=== PATIENT | female | born 1960 | race Caucasian/White ===

== ENCOUNTER → 2017-02-18 | Outpatient (CLI) | payer BC ==
--- NOTE | 2017-02-18 09:11 | REPMRS ---
Patient History The patient states she had a clinical breast exam in 01/2017. Patient is postmenopausal and had first child at age 33. Family history of endometrial cancer in sister at age 50 and colorectal cancer in maternal aunt at age 50 or over. Digital Woman Screen Mammo: February 18, 2017 - Exam #: [id number] Bilateral CC and MLO view(s) were taken. Technologist: Gina Carvalho, Technologist Prior study comparison: January 30, 2016, digital woman screen mammo performed at [facility]. January 17, 2015, digital woman screen mammo performed at [facility]. FINDINGS: The breast tissue is heterogeneously dense. This may lower the sensitivity of mammography. There is a fairly symmetric fibroglandular pattern in both breasts. There has been no interval development of masses, areas of architectural distortion or clusters of microcalcifications typical of malignancy. ASSESSMENT: BI-RADS/ACR category 2 mammogram. Benign finding(s). Recommendation Routine screening mammogram of both breasts in 1 year (for women over age 40). This mammogram was interpreted with the aid of an FDA-approved computer-aided dectection system. Electronically Signed By: Kev Prince MD 02/18/17 0910
== END ==
LOC: M WHC 08:07
PROVIDERS: ATTEND Nurse Practitioner Family
DX: Z12.31 Encounter for screening mammogram for malignant neoplasm of breast (principal)

== ENCOUNTER → 2017-02-18 | Outpatient (REF) | payer BC | LOC: M SFHCWAGY 08:31 | PROVIDERS: ATTEND Nurse Practitioner Family | DX: Z12.4 Encounter for screening for malignant neoplasm of cervix (principal) ==

== ENCOUNTER → 2018-05-19 | Outpatient (CLI) | payer BC | LOC: M WHC 08:15 | DX: Z12.31 Encounter for screening mammogram for malignant neoplasm of breast (principal) ==

== ENCOUNTER → 2018-09-23 | Outpatient (CLI) | payer BC ==
--- NOTE | 2018-09-23 10:24 | REP ---
Clinical: Trauma/fall with pain. Technique: AP, lateral, bilateral oblique views right wrist. Findings: The carpal bones, surrounding osseous structures, soft tissues, and joint spaces are normal. There is no evidence for acute fracture or dislocation. No subcutaneous emphysema or radiodense foreign body. Impression: Normal right wrist series. No acute fracture or dislocation Electronically Signed by Grabiel Dorantes MD 09/23/2018 10:16 A
== END ==
LOC: M ADAMS 10:02
PROVIDERS: ATTEND Physician Assistant Medical
DX: M25.531 Pain in right wrist (principal)

== ENCOUNTER → 2019-01-19 | Outpatient (REF) | payer BC | LOC: M LAB REF 14:09 | PROVIDERS: ATTEND Physician Assistant Medical | DX: N39.0 Urinary tract infection, site not specified (principal) ==

== ENCOUNTER → 2019-06-01 | Outpatient (CLI) | payer BC ==
--- NOTE | 2019-06-01 11:32 | REPMRS ---
Patient History The patient states she had a clinical breast exam in 05/2019. Patient is postmenopausal and had first child at age 33. Family history of colorectal cancer at age 50 or over in maternal aunt, breast cancer at age 60 and endometrial cancer at age 50 in sister. 3D TOMOSYNTHESIS WAS PERFORMED. The [facility] lifetime risk for breast cancer is 18.3%. Digital Woman Screen Mammo: June 01, 2019 - Exam #: [id number] Bilateral CC and MLO view(s) were taken. Technologist: Gina Carvalho, Technologist Prior study comparison: May 19, 2018, bilateral digital woman screen mammo performed at [facility]. February 18, 2017, digital woman screen mammo performed at [facility]. FINDINGS: The breast tissue is heterogeneously dense. This may lower the sensitivity of mammography. There has been no change in the appearance of the mammogram from the prior studies. There is a moderate amount of residual fibroglandular tissue which is fairly symmetric. There is no interval development of dominant mass, areas of architectural distortion, or clustered microcalcification typical of malignancy. Assessment: BI-RADS/ACR category 1 mammogram. Negative Mammogram. Recommendation Routine screening mammogram in 1 year (for women over age 40). This mammogram was interpreted with the aid of an FDA-approved computer-aided dectection system. Electronically Signed By: Kev Prince MD 06/01/19 5796
== END ==
LOC: M WHC 08:38
PROVIDERS: ATTEND Nurse Practitioner Family
DX: Z12.31 Encounter for screening mammogram for malignant neoplasm of breast (principal); Z80.0 Family history of malignant neoplasm of digestive organs; Z85.3 Personal history of malignant neoplasm of breast; Z80.49 Family history of malignant neoplasm of other genital organs

== ENCOUNTER → 2019-06-01 | Outpatient (REF) | payer BC ==
[2019-06-06 08:19] LABS: HPV HYBRID CAPTURE II Negative (Negative)
== END ==
LOC: M SFHCWAGY 09:21
PROVIDERS: ATTEND Nurse Practitioner Family
DX: Z12.4 Encounter for screening for malignant neoplasm of cervix (principal)
CPT/HCPCS: 87624; G0123

== ENCOUNTER 2019-09-13 09:23 | Day surgery (SDC) | payer BC ==
[~2019-09-13] VITALS: Ht 175.3 cm; Wt 57.2 kg
[~2019-09-13 09:23] MED LIST: CALC-190 PO; FISH1000 PO; LIDOCAINE 2% INJ 100 MG/5 ML SDV (FOR ANES.) As Ordered ONE; MULTCAP PO; NS 1,000 ML IV ONE; PURE500C5 PO; propofoL 200 MG/20 ML VIAL As Ordered ONE
--- NOTE | 2019-09-13 11:41 | ROOR ---
Patient Name: Vee Moore Procedure Date: 09/13/2019 10:58 AM Date of : 1960 Age: 59 Room: [facility] Gender: Female Note Status: Finalized Procedure: Colonoscopy Indications: Colon cancer screening in patient at increased risk: Family history of 1st-degree relative with colon polyps before age 60 years, Last colonoscopy: June 2013 Providers: Magno Paige MD Referring MD: Angeles Ramirez NP Requesting Provider: Medicines: Monitored Anesthesia Care Complications: No immediate complications. Procedure: Pre-Anesthesia Assessment: - Prior to the procedure, a History and Physical was performed, and patient medications and allergies were reviewed. The patient is competent. The risks and benefits of the procedure and the sedation options and risks were discussed with the patient. All questions were answered and informed consent was obtained. Patient identification and proposed procedure were verified by the physician, the nurse and the anesthesiologist in the procedure room. Mental Status Examination: alert and oriented. CV Examination: regular rate and rhythm. ASA Grade Assessment: I - A normal, healthy patient. After reviewing the risks and benefits, the patient was deemed in satisfactory condition to undergo the procedure. The anesthesia plan was to use monitored anesthesia care (MAC). Immediately prior to administration of medications, the patient was re-assessed for adequacy to receive sedatives. The heart rate, respiratory rate, oxygen saturations, blood pressure, adequacy of pulmonary ventilation, and response to care were monitored throughout the procedure. The physical status of the patient was re-assessed after the procedure. The Colonoscope was introduced through the anus and advanced to the cecum, identified by appendiceal orifice and ileocecal valve. The colonoscopy was somewhat difficult due to significant looping. The patient tolerated the procedure well. The quality of the bowel preparation was adequate to identify polyps. Findings: The perianal and digital rectal examinations were normal. The colon (entire examined portion) appeared normal. Impression: - The entire examined colon is normal. - No specimens collected. Recommendation: - Discharge patient to home. - Resume previous diet. - Continue present medications. - Repeat colonoscopy in 5 years for screening purposes. Magno Paige MD Magno Paige MD 09/13/2019 11:40:42 AM Electronically signed by Magno Paige MD Number of Addenda: 0 Note Initiated On: 09/13/2019 10:58 AM Estimated Blood Loss: Estimated blood loss: none.
[2019-09-13 12:03] VITALS: BP 108/54
== END 2019-09-13 12:05 | disposition home or self-care (01) ==
LOC: M OPP 09:23
PROVIDERS: ATTEND Surgery
DX: Z12.11 Encounter for screening for malignant neoplasm of colon (principal); Z83.71 Family history of colonic polyps; Z88.0 Allergy status to penicillin

== ENCOUNTER → 2020-06-03 | Outpatient (CLI) | payer BC ==
[~2020-06-03] MED LIST changes: -LIDOCAINE 2% INJ 100 MG/5 ML SDV (FOR ANES.) As Ordered ONE; -NS 1,000 ML IV ONE; -propofoL 200 MG/20 ML VIAL As Ordered ONE
--- NOTE | 2020-06-03 10:04 | REPMRS ---
Patient History The patient states she had a clinical breast exam in 2019. Family history of colorectal cancer at age 50 or over in maternal aunt, breast cancer at age 60 and endometrial cancer at age 50 in sister. 3D TOMOSYNTHESIS WAS PERFORMED. The [facility] lifetime risk for breast cancer is 17.9%. [facility] Digital Woman Screen Mammo: June 03, 2020 - Exam #: [id number] Bilateral CC and MLO view(s) were taken. Technologist: Elva Patel, Technologist Prior study comparison: June 01, 2019, bilateral digital woman screen mammo performed at [facility]. May 19, 2018, bilateral digital woman screen mammo performed at [facility]. FINDINGS: The breast tissue is heterogeneously dense. This may lower the sensitivity of mammography. There has been no change in the appearance of the mammogram from the prior studies. There is a moderate amount of residual fibroglandular tissue which is fairly symmetric. There is no interval development of dominant mass, areas of architectural distortion, or clustered microcalcification typical of malignancy. Assessment: BI-RADS/ACR category 1 mammogram. Negative Mammogram. Recommendation Routine screening mammogram in 1 year (for women over age 40). This mammogram was interpreted with the aid of an FDA-approved computer-aided dectection system. Electronically Signed By: Kev Prince MD 06/03/20 [id number]
== END ==
LOC: M WHC 08:40
PROVIDERS: ATTEND Nurse Practitioner Family
DX: Z12.31 Encounter for screening mammogram for malignant neoplasm of breast (principal); Z80.3 Family history of malignant neoplasm of breast; Z80.49 Family history of malignant neoplasm of other genital organs

== ENCOUNTER → 2020-11-12 | Outpatient (CLI) | payer BC ==
--- NOTE | 2020-11-12 15:54 | REP ---
INDICATION: R59.0 LYMPHADENOPATHY,INGUINAL. COMPARISON: 05/29/2013. TECHNIQUE: Multiple ultrasonographic images of the right inguinal canal. FINDINGS: Within the right inguinal canal there is a large mass like structure containing multiple septations and loculations overall measuring 6.5 x 3.4 cm. This appearance is not typical of inguinal lymph nodes. The finding is nonspecific but could represent bowel herniation, abscess or mass of other etiology. IMPRESSION: There is a large multi septated multiloculated mass in the right inguinal canal. This is nonspecific. Some diagnostic considerations are bowel hernia, abscess or mass of other etiology. The appearance is not typical lymph lymph nodes. Consider follow-up abdomen/pelvis CT for further evaluation. <Electronically signed by Kev Soto > 11/12/20 5526
== END ==
LOC: M WHC 12:34
PROVIDERS: ATTEND Nurse Practitioner Family
DX: R59.0 Localized enlarged lymph nodes (principal)

== ENCOUNTER → 2020-11-27 | Outpatient (CLI) | payer BC ==
[~2020-11-27] MED LIST changes: +ISOVUE-370 76% 100ML VIAL As Ordered ONE
--- NOTE | 2020-11-28 03:54 | REP ---
INDICATION: RLQ ABD MASS. COMPARISON: None TECHNIQUE: Axial contrast-enhanced images from the lung bases to the pubic symphysis using 100 cc Isovue 370 intravenous contrast material. Coronal and sagittal reformations obtained. This CT examination was performed using the following dose reduction techniques: Automated exposure control, adjustment of mA and/or kv according to the patient's size, and the use of iterative reconstruction technique. FINDINGS: Liver, spleen, pancreas, gallbladder, bilateral adrenal glands and kidneys are normal. The enteric system is incompletely and poorly evaluated due to lack of contrast as well as significant paucity of intraperitoneal fat and intrinsic contrast. Pelvis demonstrates normal bladder and age-appropriate uterus/adnexa by noncontrast CT evaluation. No ascites. No free air. No obvious adenopathy. Abdominal aorta and vasculature are normal and without aneurysm or dissection. There is somewhat asymmetric enlargement of the musculature along the anterior right hip including asymmetric enlargement to the right ileopsoas muscle with what appears to be a complex possibly intramuscular cystic collection along the anterior right hip anterior to the acetabulum (series 201; images 100-127). Evaluation of the skeletal structures demonstrate irregularity involving the left hip/proximal femur which may reflect old fracture or changes related to avascular necrosis and correlation is required. IMPRESSION: 1. Evaluation is significantly limited by the lack of intraluminal contrast and intraperitoneal fat and lack of intrinsic contrast. 2. Irregular appearance to the musculature overlying the right hip as described above as well as irregular appearance to the left proximal femur. Correlation is recommended. 3. No further obvious acute pathology appreciated by current examination. <Electronically signed by Grabiel Dorantes > 11/28/20 0355
== END ==
LOC: M RAD 14:36
PROVIDERS: ATTEND Family Medicine
DX: R19.03 Right lower quadrant abdominal swelling, mass and lump (principal)
CPT/HCPCS: 74177; Q9967

== ENCOUNTER → 2021-01-02 | Outpatient (CLI) | payer BC ==
[~2021-01-02] MED LIST changes: -ISOVUE-370 76% 100ML VIAL As Ordered ONE; +PROHANCE 279.3MG/ML 15ML VIAL As Ordered ONE
--- NOTE | 2021-01-02 12:00 | REP ---
INDICATION: RT HIP SWELLING/MASS/LUMP COMPARISON: CT 11/27/2020. TECHNIQUE: Multiple sequences obtained in the axial, coronal and sagittal planes prior to and following the intravenous administration of 11 mL ProHance. FINDINGS: The site of the palpable lump is marked in the right inguinal region. In the underlying soft tissues there is complex fluid present with internal septations and heterogeneous signal, measuring approximately 3.5 x 3.5 x 4.0 cm. There is no internal enhancement. It is located along the posterior margin of the right iliopsoas muscles and tendons. Mild fluid extends superiorly along the posterior aspect of the right iliacus and psoas muscles. The fluid communicates with the right hip joint more inferiorly. This is consistent with complex right iliopsoas bursitis. Moderate to severe arthritic changes are seen at the right hip joint with diffuse significant chondromalacia and subchondral marrow edema. There is moderate diffuse spurring of the acetabulum. There appear to be tears of the superior and anterior right hip labrum. There is a moderate joint effusion. Note is made of moderate arthritic changes at the left hip joint with subchondral cystic changes in the lateral acetabulum and femoral head. There are findings of mild to moderate bilateral greater trochanteric tendonobursitis. There is mild subchondral marrow edema along the pubic symphysis bilaterally. Within the pelvis, the uterus is noted to be deviated to the right. There is no adenopathy or mass. There is no free fluid. IMPRESSION: Palpable lump in the right inguinal region corresponds to complex fluid associated with significant right iliopsoas bursitis. There are moderate to severe arthritic changes at the right hip joint as discussed above with a moderate joint effusion. There are tears of the superior and anterior right hip labrum. There are also moderate degenerative changes of the left hip joint. There are findings of mild to moderate bilateral greater trochanteric tendonobursitis. <Electronically signed by Kev Prince > 01/02/21 0846
== END ==
LOC: M RAD 09:48
PROVIDERS: ATTEND Orthopaedic Surgery
DX: M70.71 Other bursitis of hip, right hip (principal); M16.0 Bilateral primary osteoarthritis of hip; M25.451 Effusion, right hip; M70.61 Trochanteric bursitis, right hip; M70.62 Trochanteric bursitis, left hip; S73.191A Other sprain of right hip, initial encounter; X58.XXXA Exposure to other specified factors, initial encounter; Y92.89 Other specified places as the place of occurrence of the external cause
CPT/HCPCS: 73723; A9576

== ENCOUNTER → 2021-02-06 | Outpatient (CLI) | payer BC ==
[~2021-02-06] MED LIST changes: +LIDOCAINE 1% MDV 20ML VIAL As Ordered ONE; -PROHANCE 279.3MG/ML 15ML VIAL As Ordered ONE; +SODIUM BICARBONATE 8.4% INJ 50MEQ 50 ML VIAL As Ordered ONE; +TRIAMCINOLONE ACETONIDE SUSP 40 MG/ML VIAL (J3301) As Ordered ONE
[2021-02-06 12:02] VITALS: BP 124/73
--- NOTE | 2021-02-06 18:35 | REP ---
INDICATION: BURSITIS RT HIP. COMPARISON: Ultrasound dated 11/12/2020, MRI dated 01/02/2021 TECHNIQUE: The procedure was performed by Jayleen Yagn [facility], under the direct supervision of Dr. Prince. The risks and benefits of the procedure were explained to the patient and an informed consent was obtained both verbally and written. Directly prior to the start of the procedure a formal time-out was completed in the procedure room. FINDINGS: Using ultrasound guidance the right iliopsoas bursa was localized containing complex bursitis. The skin was prepped and draped in a sterile fashion. A 25 gauge needle was inserted and approximately 3 mL of buffered lidocaine was injected as a local anesthetic. A small skin allie was made and a 5 Mosotho multi sidehole skater catheter was inserted and advanced into the right iliopsoas bursa. Approximately 0.5 mL of joint fluid was aspirated and sent to the laboratory for further analysis. With the catheter still in place 1 mL of Kenalog 40 milligrams/milliliter was injected into the bursa. The catheter was removed and hemostasis was achieved. The patient tolerated the procedure well and there were no immediate complications. After the appropriate amount of monitored convalescence the patient was discharged from the department. IMPRESSION: 1. Ultrasound-guided right iliopsoas bursa aspiration and injection. <Electronically signed by Jayleen Yang > 02/06/21 1337 <Electronically signed by Kev Prince > 02/06/21 2256
== END ==
LOC: M IRPRO 10:56
PROVIDERS: ATTEND Orthopaedic Surgery
DX: M70.71 Other bursitis of hip, right hip (principal)
CPT/HCPCS: 20611; 87070; 87075; 87205; J3301

== ENCOUNTER → 2021-06-04 | Outpatient (REF) | payer BC ==
[~2021-06-04] MED LIST changes: -LIDOCAINE 1% MDV 20ML VIAL As Ordered ONE; -SODIUM BICARBONATE 8.4% INJ 50MEQ 50 ML VIAL As Ordered ONE; -TRIAMCINOLONE ACETONIDE SUSP 40 MG/ML VIAL (J3301) As Ordered ONE
== END ==
LOC: M SFHCWAGY 13:00
PROVIDERS: ATTEND Nurse Practitioner Women's Health
DX: Z12.4 Encounter for screening for malignant neoplasm of cervix (principal); Z01.419 Encounter for gynecological examination (general) (routine) without abnormal findings

== ENCOUNTER → 2021-06-04 | Outpatient (CLI) | payer BC ==
--- NOTE | 2021-06-04 10:34 | REPMRS ---
Patient History The patient states she had a clinical breast exam in May 2021. Patient is postmenopausal and had first child at age 33. Family history of colorectal cancer at age 50 or over in maternal aunt, breast cancer at age 60 and endometrial cancer at age 50 in sister. Pfizer vaccine 11/07/20 left arm. 11/28/20 left arm. Patient states no breast complaints today. Patient has signed MRS History Sheet. Digital Woman Screen Mammo: June 04, 2021 - Exam #: [id number] Bilateral CC and MLO view(s) were taken. Technologist: RT Micheal Prior study comparison: June 03, 2020, bilateral digital woman screen mammo performed at [facility]. June 01, 2019, bilateral digital woman screen mammo performed at [facility]. FINDINGS: The breast tissue is heterogeneously dense. This may lower the sensitivity of mammography. The Volpara volumetric breast density category is: C. There is a moderate amount of heterogeneously dense fibroglandular tissue which is fairly symmetric. There is no interval development of dominant mass, architectural distortion, or grouped microcalcification typical of malignancy. There has been no change in the appearance of the mammogram from the prior studies. 3-D tomosynthesis shows no additional findings. Assessment: BI-RADS/ACR category 1 mammogram. Negative Mammogram. Recommendation Routine screening mammogram of both breasts in 1 year (for women over age 40). This patient's [facility] Lifetime Breast Cancer RIsk is estimated at 17.5 %. This mammogram was interpreted with the aid of an FDA-approved computer-aided dectection system. Electronically Signed By: Alexander Duenas MD 06/04/21 1034
== END ==
LOC: M WHC 09:14
PROVIDERS: ATTEND Nurse Practitioner Women's Health
DX: Z12.31 Encounter for screening mammogram for malignant neoplasm of breast (principal)

== ENCOUNTER → 2021-06-08 | Outpatient (CLI) | payer BC ==
[~2021-06-08] MED LIST changes: +ISOVUE-300 61% 50ML VIAL As Ordered ONE; +LIDOCAINE 1% MDV 20ML VIAL As Ordered ONE; +TRIAMCINOLONE ACETONIDE SUSP 40 MG/ML VIAL (J3301) As Ordered ONE
--- NOTE | 2021-06-08 16:36 | REP ---
INDICATION: OA RT HIP. COMPARISON: None TECHNIQUE: The procedure was performed by RAMO Gibbons, under the direct supervision of Dr. Prince. The benefits and risks of the procedure were explained to the patient, and an informed consent was obtained. Directly prior to the start of the procedure, a formal time-out was completed in the procedure room. The right femoral neck joint space was localized using fluoroscopic guidance. The skin was prepped and draped in a sterile fashion. Approximately 5 mL of 1% Lidocaine 10 mg/ml was used as a local anesthetic. Using fluoroscopic guidance, a #22 gauge spinal needle was inserted and advanced into the right femoral neck joint space. Approximately 1 mL of Isovue 300 was injected to verify placement. Six mL of a solution containing 5 mL 1% lidocaine 10 mg/ml and 1 mL Kenalog 40 milligrams/milliliter was injected into the joint space. The needle was removed and hemostasis was achieved. FINDINGS: The patient tolerated the procedure well and there were no immediate complications. IMPRESSION: 1. Fluoroscopically guided right hip intra-articular pain injection. 0.1 minutes of fluoroscopy time was utilized for this procedure. Some fluoroscopic images are performed with last image hold technology. These images require no additional radiation. <Electronically signed by Jayleen Yang > 06/08/21 1451 <Electronically signed by Kev Prince > 06/08/21 1850
== END ==
LOC: M RADPRO 12:53
PROVIDERS: ATTEND Orthopaedic Surgery
DX: M16.11 Unilateral primary osteoarthritis, right hip (principal)
CPT/HCPCS: 20610; 77002; J3301; Q9967

== ENCOUNTER → 2022-08-06 | Outpatient (CLI) | payer BC ==
[~2022-08-06] MED LIST changes: +ASCO500C3 PO; -ISOVUE-300 61% 50ML VIAL As Ordered ONE; -LIDOCAINE 1% MDV 20ML VIAL As Ordered ONE; -PURE500C5 PO; -TRIAMCINOLONE ACETONIDE SUSP 40 MG/ML VIAL (J3301) As Ordered ONE
[2022-08-06 10:31] LABS: APPEARANCE, URINE MANUAL CLEAR (CLEAR); COLOR, URINE MANUAL LT YELLOW (YELLOW)
[2022-08-06 10:32] LABS: SPECIFIC GRAVITY,URINE MANUAL 1.005 (1.002-1.035)
[2022-08-06 10:33] LABS: BILIRUBIN, URINE MANUAL NEGATIVE (NEGATIVE); BLOOD URINE MANUAL NEGATIVE (NEGATIVE); GLUCOSE, URINE (UA) MANUAL NEGATIVE (NEGATIVE); KETONE, URINE MANUAL NEGATIVE (NEGATIVE); LEUKOCYTE ESTERASE, URINE MAN NEGATIVE (NEGATIVE); NITRITE, URINE MANUAL NEGATIVE (NEGATIVE); PROTEIN, URINE MANUAL NEGATIVE (NEGATIVE); UROBILINOGEN, URINE MANUAL NORMAL (NORMAL)
[2022-08-06 13:13] LABS: BASO # 0.1 10^3/uL (0.0-0.2); BASO % 0.9 % (0.0-1.0); EOS # 0.2 10^3/uL (0.0-0.5); EOS % 3.2 % (0.0-3.0); HEMATOCRIT 40.5 % (36.0-47.0); LYMPH # 1.5 10^3/uL (1.5-5.0); LYMPH % 27.6 % (24.0-44.0); MEAN CORPUSCULAR HEMOGLOBIN 32.2 pg (27.0-33.0); MEAN CORPUSCULAR HGB CONC 32.1 g/dl (32.0-36.5); MEAN CORPUSCULAR VOLUME 100.2 fl (80.0-96.0); MONO # 0.7 10^3/uL (0.0-0.8); MONO % 12.1 % (2.0-8.0); PLATELET COUNT, AUTOMATED 283 10^3/uL (150-450); RED BLOOD COUNT 4.04 10^6/uL (4.00-5.40); WHITE BLOOD COUNT 5.4 10^3/uL (4.0-10.0)
[2022-08-06 13:15] LABS: ALBUMIN 3.7 G/DL (3.2-5.2); ALKALINE PHOSPHATASE 61 U/L (46-116); ALT/SGPT 31 U/L (7.0-40); AST/SGOT 30 U/L (<34); BILIRUBIN,TOTAL 0.4 MG/DL (0.3-1.2); BLOOD UREA NITROGEN 15 MG/DL (9-23); CALCIUM LEVEL 8.9 MG/DL (8.3-10.6); CARBON DIOXIDE LEVEL 28 MMOL/L (20-31); CHLORIDE LEVEL 101 MMOL/L (98-107); CREATININE FOR GFR 0.57 MG/DL (0.55-1.30); GLOMERULAR FILTRATION RATE > 60.0 (>45); GLUCOSE, FASTING 78 MG/DL (74-106); POTASSIUM SERUM 4.4 MMOL/L (3.5-5.1); SODIUM LEVEL 138 MMOL/L (136-145); TOTAL PROTEIN 6.8 G/DL (5.7-8.2)
[2022-08-06 13:24] LABS: INR 0.91; PARTIAL THROMBOPLASTIN TIME 27.8 SECONDS (24.8-34.2); PROTHROMBIN TIME 12.5 SECONDS (12.5-14.5)
== END ==
LOC: M PLALAB 08:48
PROVIDERS: ATTEND Family Medicine
DX: Z01.810 Encounter for preprocedural cardiovascular examination (principal)

== ENCOUNTER → 2023-01-27 | Outpatient (REF) | payer BC | LOC: M SFHCWAGY 13:21 | PROVIDERS: ATTEND Nurse Practitioner Family | DX: Z12.4 Encounter for screening for malignant neoplasm of cervix (principal) ==

== ENCOUNTER → 2023-01-27 | Outpatient (CLI) | payer BC | LOC: M WHC 08:58 | PROVIDERS: ATTEND Nurse Practitioner Family | DX: Z12.31 Encounter for screening mammogram for malignant neoplasm of breast (principal); M81.0 Age-related osteoporosis without current pathological fracture ==

== ENCOUNTER → 2023-12-15 | Outpatient (REF) | payer BC ==
[2023-12-15 13:14] LABS: URIC ACID 3.4 MG/DL (3.1-7.8)
[2023-12-15 13:15] LABS: C REACTIVE PROTEIN QUANTITATIV < 0.40 MG/DL (<1.0)
[2023-12-15 13:17] LABS: ALBUMIN 3.6 G/DL (3.2-5.2); ALKALINE PHOSPHATASE 59 U/L (46-116); ALT/SGPT 33 U/L (7.0-40); AST/SGOT 30 U/L (<34); BILIRUBIN,TOTAL 0.5 MG/DL (0.3-1.2); BLOOD UREA NITROGEN 11 MG/DL (9-23); CARBON DIOXIDE LEVEL 31 MMOL/L (20-31); CHLORIDE LEVEL 99 MMOL/L (98-107); CREATININE FOR GFR 0.59 MG/DL (0.55-1.30); GLOMERULAR FILTRATION RATE > 60.0 (>45); GLUCOSE, FASTING 75 MG/DL (74-106); POTASSIUM SERUM 4.5 MMOL/L (3.5-5.1); SODIUM LEVEL 135 MMOL/L (136-145)
[2023-12-15 13:19] LABS: RHEUMATOID FACTOR QUANT < 3.5 IU/ML (<14)
[2023-12-16 23:07] LABS: ANA (HEP2) Positive (.); CYCLIC CITRULLINATED PEPTIDE 5 units (0-19)
== END ==
LOC: M SFHCADAM 09:53
PROVIDERS: ATTEND Student in an Organized Health Care Education/Training Program
DX: I73.00 Raynaud's syndrome without gangrene (principal)

== ENCOUNTER → 2024-01-30 | Outpatient (CLI) | payer BC | LOC: M WHC 08:45 | PROVIDERS: ATTEND Nurse Practitioner Family | DX: Z12.31 Encounter for screening mammogram for malignant neoplasm of breast (principal) ==

== ENCOUNTER 2024-08-12 13:25 | Emergency (ER) | payer BC ==
[~2024-08-12] VITALS: Ht 175.3 cm; Wt 56.6 kg
[2024-08-12] MEDS: IBUPROFEN 600MG TAB PO ONE (14:21)
[2024-08-12 14:35] VITALS: BP 120/68; TEMP 97.6; O2SAT 100
== END 2024-08-12 15:49 | disposition home or self-care (01) ==
LOC: M ED 13:25
DX: S52.352A Displaced comminuted fracture of shaft of radius, left arm, initial encounter for closed fracture (principal); Y92.019 Unspecified place in single-family (private) house as the place of occurrence of the external cause; Y93.9 Activity, unspecified; Y99.9 Unspecified external cause status; W00.0XXA Fall on same level due to ice and snow, initial encounter; Z88.0 Allergy status to penicillin

== ENCOUNTER → 2024-08-13 | Outpatient (CLI) | payer BC | LOC: M SOG 09:36 | PROVIDERS: ATTEND Orthopaedic Surgery | DX: S52.591A Other fractures of lower end of right radius, initial encounter for closed fracture (principal); W18.30XA Fall on same level, unspecified, initial encounter; Y92.009 Unspecified place in unspecified non-institutional (private) residence as the place of occurrence of the external cause ==

== ENCOUNTER → 2024-08-27 | Outpatient (CLI) | payer BC | LOC: M SOG 07:51 | PROVIDERS: ATTEND Physician Assistant | DX: S52.591A Other fractures of lower end of right radius, initial encounter for closed fracture (principal); W18.30XA Fall on same level, unspecified, initial encounter; Y92.009 Unspecified place in unspecified non-institutional (private) residence as the place of occurrence of the external cause ==

== ENCOUNTER → 2024-08-30 | Outpatient (CLI) | payer BC ==
[~2024-08-30] MED LIST changes: +KP F1200 PO; +THERTAB52 PO; +VITA250T27 PO
== END ==
LOC: M SOG 09:22
PROVIDERS: ATTEND Orthopaedic Surgery Hand Surgery
DX: S52.92XA Unspecified fracture of left forearm, initial encounter for closed fracture (principal); W18.30XA Fall on same level, unspecified, initial encounter; Y92.009 Unspecified place in unspecified non-institutional (private) residence as the place of occurrence of the external cause

== ENCOUNTER 2024-09-03 09:56 | Day surgery (SDC) | payer BC ==
[~2024-09-03] VITALS: Ht 175.3 cm; Wt 56.2 kg
[2024-09-03] MEDS: MIDAZOLAM INJ 2MG/2ML VIAL IV PRN (11:21)
[2024-09-03] MEDS: fentaNYL 100 MCG/2 ML INJECTION IV PRN ×2 (11:21→13:51)
[2024-09-03] MEDS: dexAMETHasone 10MG/1ML VIAL PRES.FREE PN ONE (11:24)
[2024-09-03] MEDS: EPINEPHrine INJ 1 MG/ML 1ML AMP PN ONE (11:24)
[2024-09-03] MEDS: LIDOCAINE 1% SDV 5ML VIAL PN ONE (11:24)
[2024-09-03] MEDS: ROPIvacaine 0.5% 30ML VIAL PN ONE (11:24)
[2024-09-03] MEDS ORDERED: BACITRACIN OINTMENT 30GM TUBE As Ordered ONE (11:35)
[2024-09-03] MEDS: ceFAZolin 2 GM/D5W 50 ML IV BAG As Ordered ONE (11:54)
[2024-09-03] MEDS: ceFAZolin SOD 2 GM in IV 1 EA IV ONE (11:58)
[2024-09-03] MEDS ORDERED: LIDOCAINE 2% 100MG/5ML SDV (FOR ANES.) As Ordered ONE (12:01)
[2024-09-03] MEDS ORDERED: propofoL 200 MG/20 ML VIAL As Ordered ONE (12:01)
[2024-09-03] MEDS ORDERED: MIDAZOLAM INJ 2MG/2ML VIAL As Ordered ONE (12:01)
[2024-09-03] MEDS ORDERED: ePHEDrine SULFATE 25 MG/5 ML(5MG/ML) SYRINGE As Ordered ONE (12:01)
[2024-09-03] MEDS ORDERED: ONDANSETRON 4MG 2ML VIAL As Ordered ONE (12:01)
[2024-09-03] MEDS ORDERED: fentaNYL 100 MCG/2 ML INJECTION As Ordered ONE (12:01)
[2024-09-03] MEDS ORDERED: ACETAMINOPHEN 1000MG/100ML IV BAG As Ordered ONE (12:06)
[2024-09-03] MEDS ORDERED: KETOROLAC 60MG 2ML VIAL As Ordered ONE (13:25)
[2024-09-03] MEDS ORDERED: MEPERIDINE 25 MG/ML 1ML VIAL IV PRN (13:35)
[2024-09-03] MEDS ORDERED: PERC5TAB12 PO (13:47)
[2024-09-03] MEDS: oxyCODONE 5MG TAB PO PRN (14:17)
[2024-09-03] MEDS: HYDROMORPHONE HCL 0.5 MG/ 0.5 ML SYRINGE IV PRN (14:18)
[2024-09-03] MEDS: ONDANSETRON 4MG 2ML VIAL IV PRN (15:45)
[2024-09-03 16:20] VITALS: BP 129/68; TEMP 98; O2SAT 100
== END 2024-09-03 16:45 | disposition home or self-care (01) ==
LOC: M SDC 09:56
PROVIDERS: ATTEND Orthopaedic Surgery Hand Surgery
DX: S52.552A Other extraarticular fracture of lower end of left radius, initial encounter for closed fracture (principal); X58.XXXA Exposure to other specified factors, initial encounter; Y93.9 Activity, unspecified; Z88.0 Allergy status to penicillin
CPT/HCPCS: 25607; 76000; 93005; C1713; J0131; J0171; J0690; J1100; J1171; J1885; J2250; J2405; J2795; J3010

== ENCOUNTER → 2024-09-12 | Outpatient (CLI) | payer BC ==
[~2024-09-12] MED LIST changes: +PERC5TAB12 PO
== END ==
LOC: M SOG 07:52
PROVIDERS: ATTEND Physician Assistant
DX: M25.532 Pain in left wrist (principal)

== ENCOUNTER → 2024-10-03 | Outpatient (CLI) | payer BC | LOC: M SOG 07:50 | PROVIDERS: ATTEND Physician Assistant | DX: M25.532 Pain in left wrist (principal); S52.502D Unspecified fracture of the lower end of left radius, subsequent encounter for closed fracture with routine healing ==

== ENCOUNTER → 2024-10-24 | Outpatient (CLI) | payer BC | LOC: M SOG 07:48 | PROVIDERS: ATTEND Physician Assistant | DX: M25.532 Pain in left wrist (principal) ==

== ENCOUNTER → 2024-11-28 | Outpatient (CLI) | payer BC | LOC: M SOG 07:53 | PROVIDERS: ATTEND Physician Assistant | DX: M65.232 Calcific tendinitis, left forearm (principal) ==

== ENCOUNTER → 2025-06-11 | Outpatient (CLI) | payer BC ==
[2025-06-11 13:21] LABS: PLATELET COUNT, AUTOMATED 304 10^3/uL (150-450)
[2025-06-11 13:51] LABS: FREE T4 0.89 NG/DL (0.89-1.76)
[2025-06-11 13:59] LABS: ALT/SGPT 32 U/L (7.0-40); AST/SGOT 33 U/L (<34); CALCIUM LEVEL 9.0 MG/DL (8.3-10.6); CARBON DIOXIDE LEVEL 30 MMOL/L (20-31); CHLORIDE LEVEL 100 MMOL/L (98-107); CHOLESTEROL LEVEL 208 MG/DL (<200); CHOLESTEROL RISK RATIO 2.61 (<5); CREATININE FOR GFR 0.60 MG/DL (0.55-1.30); GLOMERULAR FILTRATION RATE > 90.0 (>45); LDL CHOLESTEROL 115.8 MG/DL (<100); NON-HDL-C 128.6 MG/DL; POTASSIUM SERUM 4.4 MMOL/L (3.5-5.1); SODIUM LEVEL 139 MMOL/L (136-145); TRIGLYCERIDES LEVEL 64 MG/DL (<150)
== END ==
LOC: M PLALAB 11:29
PROVIDERS: ATTEND Family Medicine
DX: Z13.29 Encounter for screening for other suspected endocrine disorder (principal); Z13.6 Encounter for screening for cardiovascular disorders